=== PATIENT | female | born 1970 | race American Indian/Alaskan Native ===

== ENCOUNTER 2018-12-18 02:51 | Emergency (ER) | payer BC, OTHER ==
[2018-12-18 03:11] VITALS: TEMP 98.6; BMI 45.9
--- NOTE | 2018-12-18 03:52 | ED PDOC ---
Arrival/HPI - General Chief Complaint: Cough, Cold, Congestion Time Seen by Provider: 12/18/18 03:09 Historian: Patient - History of Present Illness Narrative History of Present Illness (Text): 12/18/18 03:50 A 48 year old female presents to the emergency department complaining of headache, sore throat, right ear pain, chest congestion, and dry cough. Patient reports when coughing, feels chest pressure. Patient denies any fever, chills, nausea, vomiting, diarrhea, abdominal pain, or any other complaints at this time. Past Medical History - Provider Review Nursing Documentation Reviewed: Yes - Cardiac Hx Cardiac Disorders: Yes Hx Hypertension: Yes - Pulmonary Hx Respiratory Disorders: Yes Hx Bronchitis: Yes - Neurological Hx Neurological Disorder: Yes Hx Headaches: Yes Hx Migraine: Yes - Psychiatric Hx Depression: No Hx Emotional Abuse: No Hx Physical Abuse: No Hx Substance Use: No - Surgical History Hx Section: Yes - Anesthesia Hx Anesthesia: No - Suicidal Assessment Feels Threatened In Home Enviroment: No Family/Social History - Physician Review Nursing Documentation Reviewed: Yes Family/Social History: No Known Family HX Smoking Status: Never Smoked Hx Alcohol Use: No Hx Substance Use: No Hx Substance Use Treatment: No Allergies/Home Meds Allergies/Adverse Reactions: Allergies seasonal allergies Allergy (Intermediate, Uncoded 12/18/18 03:11) CONGESTION Review of Systems - Physician Review All systems were reviewed & negative as marked: Yes - Review of Systems Constitutional: absent: Fevers, Night Sweats Eyes: Other (right ear pain) ENT: Sore Throat Respiratory: Cough Cardiovascular: Chest Pain, Other (chest congestion) Gastrointestinal: absent: Abdominal Pain, Diarrhea, Nausea, Vomiting Neurological: Headache Physical Exam Vital Signs Reviewed: Yes Vital Signs Temp Pulse Resp BP Pulse Ox 12/18/18 03:09 98.6 F 98 H 20 162/96 H 98 Temperature: Afebrile Blood Pressure: Hypertensive Pulse: Regular Respiratory Rate: Normal Appearance: Positive for: Well-Appearing, Non-Toxic, Comfortable Pain Distress: None Mental Status: Positive for: Alert and Oriented X 3 - Systems Exam Head: Present: Atraumatic, Normocephalic Pupils: Present: PERRL Extroacular Muscles: Present: EOMI Conjunctiva: Present: Normal Ears: Present: Normal, NORMAL TM. No: TM Bulging, TM Perf Mouth: Present: Moist Mucous Membranes Pharnyx: Present: Normal. No: ERYTHEMA, EXUDATE Neck: Present: Normal Range of Motion Respiratory/Chest: Present: Clear to Auscultation, Good Air Exchange. No: Respiratory Distress, Accessory Muscle Use Cardiovascular: Present: Regular Rate and Rhythm, Normal S1, S2. No: Murmurs Abdomen: No: Tenderness, Distention, Peritoneal Signs Back: Present: Normal Inspection Upper Extremity: Present: Normal Inspection. No: Cyanosis, Edema Lower Extremity: Present: Normal Inspection. No: Edema Neurological: Present: GCS=15, CN II-XII Intact, Speech Normal Skin: Present: Warm, Dry, Normal Color. No: Rashes Psychiatric: Present: Alert, Oriented x 3, Normal Insight, Normal Concentration Medical Decision Making ED Course and Treatment: 12/18/18 03:51 Impression: 48 year old female with headache, sore throat, right ear pain, chest congestion, and dry cough. Plan: -- Chest X-ray -- Tylenol -- Influenza AB Stat -- Reassess and disposition Progress Notes: 12/18/18 03:25 EKG: Ordered, reviewed, and independently interpreted the EKG. Rate : 93 BPM Rhythm : NSR Interpretation : No ST-segment elevations, normal access, normal intervals. Comparison : No previous EKG for comparison. Flu swab done and was negative. CXR done: no acute disease as read by me. 12/18/18 04:52 Patient re-evaluated. Sleeping comfortably. Results discussed. Patient requesting Rx for cough medication. Writing for jonathan velazco. Advised supp ortive care for URI at home. Two days of symptoms, unlikely to be bacterial infection requiring abx at this time. - RAD Interpretation Radiology Orders: 12/18/18 03:26 CHEST ONE VIEW [RAD] Stat - Medication Orders Current Medication Orders: Discontinued Medications Acetaminophen (Tylenol 325mg Tab) 650 mg PO STAT STA Stop: 12/18/18 03:27 Last Admin: 12/18/18 03:33 Dose: 650 mg MAR Pain/Vitals Document 12/18/18 03:33 KV (Rec: 12/18/18 03:42 KV [id number]) Pain Reassessment Is This A Pain ReAssessment? No Sleep Is patient sleeping during reassessment? No Presence of Pain Presence of Pain Yes Pain Scale Used Protocol: PSCALES Pain Scale Used Numeric Location Pain Location Body Site Chest Intensity 9 Scale Used Numeric - Scribe Statement The provider has reviewed the documentation as recorded by the Dee Marlow Provider Scribe Attestation: All medical record entries made by the Rocioibe were at my direction and personally dictated by me. I have reviewed the chart and agree that the record accurately reflects my personal performance of the history, physical exam, medical decision making, and the department course for this patient. I have also personally directed, reviewed, and agree with the discharge instructions and disposition. Disposition/Present on Arrival - Present on Arrival Any Indicators Present on Arrival: No History of DVT/PE: No History of Uncontrolled Diabetes: No Urinary Catheter: No History of Decub. Ulcer: No History Surgical Site Infection Following: None - Disposition Have Diagnosis and Disposition been Completed?: Yes Diagnosis: Viral syndrome Disposition: HOME/ ROUTINE Disposition Time: 04:50 Condition: STABLE Discharge Instructions (ExitCare): Viral Syndrome (DC) Prescriptions: Benzonatate [Tessalon Perles] 100 mg PO TID PRN #10 sgl PRN Reason: Cough Forms: [employer] (Khmer)
[2018-12-18 05:07] VITALS: BP 154/88; PULSE 88; RESP 18; O2SAT 99
--- NOTE | 2018-12-18 09:35 | CARD ---
APPROVED REPORT Date of service: 12/18/2018 EKG Measurement Heart [id number] <Conclusion> Normal sinus rhythm Minimal voltage criteria for LVH, may be normal variant Borderline ECG
--- NOTE | 2018-12-18 10:11 | RAD ---
HISTORY: cough COMPARISON: None available. TECHNIQUE: Chest, one view. FINDINGS: Examination limited by habitus. LUNGS: Mild venous congestion. No focal consolidation. Please note that chest x-ray has limited sensitivity for the detection of pulmonary masses. PLEURA: No significant pleural effusion identified. No definite pneumothorax . CARDIOVASCULAR: Mild cardiomegaly. Ectatic aorta containing dense atherosclerotic calcifications. OSSEOUS STRUCTURES: No acute osseous abnormality identified. VISUALIZED UPPER ABDOMEN: Unremarkable. OTHER FINDINGS: None. IMPRESSION: Cardiomegaly. Mild venous congestion.
== END 2018-12-18 05:05 | disposition home or self-care (01) ==
LOC: ED 02:51
DX: B34.9 Viral infection, unspecified (principal); I10 Essential (primary) hypertension